=== PATIENT | male | born 1960 | race Caucasian/White ===

== ENCOUNTER 2019-03-15 11:21 | Day surgery (SDC) | payer BC ==
[~2019-03-15] VITALS: Ht 175.3 cm; Wt 102.1 kg
[2019-03-15] MEDS ORDERED: ROPIVACAINE HCL 10MG/ML 20 ML VIAL EPI ONE (11:35)
[2019-03-15] MEDS ORDERED: EPINEPHRINE 1:1000 1 MG/ML AMP ONE ×3 (11:56→15:09)
[2019-03-15] MEDS ORDERED: BUPIVACAINE/EPINEPH/PF 0.25%/0.0005 10ML ONE (11:56)
[2019-03-15] MEDS ORDERED: MORPHINE SULFATE/PF 1MG/ML 10ML AMP ONE (11:56)
[2019-03-15] MEDS ORDERED: LACTATED RINGERS 1,000 ML IV SCH (12:00)
[2019-03-15] MEDS ORDERED: ROCURONIUM BROMIDE 10MG/ML VIAL 5ML IV ONE (12:29)
[2019-03-15] MEDS ORDERED: FENTANYL CITRATE/PF 50MCG/ML 2ML VIAL ONE ×2 (12:29→14:31)
[2019-03-15] MEDS ORDERED: MIDAZOLAM HCL 2 MG/2 ML VIAL ONE (12:29)
[2019-03-15] MEDS ORDERED: PROPOFOL 200MG/20ML VIAL IV ONE ×2 (12:29→13:17)
[2019-03-15] MEDS ORDERED: LIDOCAINE HCL/PF 1% 10 MG/ML 5ML VIAL ONE (12:32)
[2019-03-15] MEDS ORDERED: LIDOCAINE HCL/EPINEPHRINE 1%-EPI 1:100,000 20 ML VIAL ONE (12:39)
[2019-03-15] MEDS ORDERED: CEFAZOLIN SODIUM 1000MG/VIAL ONE (13:31)
[2019-03-15] MEDS ORDERED: MEPERIDINE HCL/PF 25MG/ML CPJ ONE (16:27)
[2019-03-15] MEDS ORDERED: HYDROMORPHONE HCL/PF 2MG/ML CPJ IV PRN (16:45)
[2019-03-15] MEDS ORDERED: MEPERIDINE HCL/PF 25MG/ML CPJ IV ONE (16:45)
[2019-03-15] MEDS ORDERED: ONDANSETRON HCL 4MG/2ML INJ IV PRN (16:45)
[2019-03-15] MEDS ORDERED: FENTANYL CITRATE/PF 50MCG/ML 2ML VIAL IV PRN (16:45)
[2019-03-15 17:57] VITALS: BP 126/74
== END 2019-03-15 19:00 | disposition home or self-care (01) ==
LOC: OR 11:21
DX: S46.911A Strain of unspecified muscle, fascia and tendon at shoulder and upper arm level, right arm, initial encounter (principal); S43.081A Other subluxation of right shoulder joint, initial encounter; M75.121 Complete rotator cuff tear or rupture of right shoulder, not specified as traumatic; M75.21 Bicipital tendinitis, right shoulder; I10 Essential (primary) hypertension; Z88.8 Allergy status to other drugs, medicaments and biological substances; Z79.899 Other long term (current) drug therapy; Z98.890 Other specified postprocedural states; X58.XXXA Exposure to other specified factors, initial encounter; Y93.89 Activity, other specified; Y92.89 Other specified places as the place of occurrence of the external cause; Y99.8 Other external cause status
CPT/HCPCS: 29826; 29827; 29828; J0690; J2250; J2704; J2795; J3010; J3490; A4565; J0171; J2175; J2274